=== PATIENT | female | born 1970 | race Caucasian/White ===

== ENCOUNTER 2022-04-25 18:20 | Emergency (ER) | payer MEDICAID, MEDICARE ==
[2022-04-25] MEDS ORDERED: Sodium Chloride 0.9% 10 ML Syringe FLUSH PRN (19:15)
[2022-04-25] MEDS ORDERED: Acetaminophen 500 MG Tab PO ONE (19:17)
[2022-04-25] MEDS ORDERED: Sodium Chloride 0.9% 1,000 ML IV ONE (19:17)
[2022-04-25 19:58] LABS: ESTIMATED GFR > 60 (>60)
[2022-04-25 20:33] LABS: CORONAVIRUS COVID-19 NAA POSITIVE (NEGATIVE)
== END 2022-04-25 21:19 | disposition home or self-care (01) ==
LOC: JP.ED 18:20
DX: U07.1 COVID-19 (principal); R00.0 Tachycardia, unspecified; R06.82 Tachypnea, not elsewhere classified; E11.9 Type 2 diabetes mellitus without complications; E66.9 Obesity, unspecified; Z68.41 Body mass index [BMI] 40.0-44.9, adult; Z86.73 Personal history of transient ischemic attack (TIA), and cerebral infarction without residual deficits; Z90.49 Acquired absence of other specified parts of digestive tract; Z90.710 Acquired absence of both cervix and uterus; Z79.899 Other long term (current) drug therapy; Z79.4 Long term (current) use of insulin; Z79.84 Long term (current) use of oral hypoglycemic drugs
CPT/HCPCS: 0241U; 36415; 71045; 71045-26; 80053; 81001; 83605; 85025; 86140; 87040; 87086; 96360; 99284; 99285-25; A9270-GY; J3490; J7030

== ENCOUNTER 2022-05-02 03:12 | Emergency (ER) | payer MEDICARE | END 2022-05-02 03:59 | disposition home or self-care (01) | LOC: JP.ED 03:12 | DX: U07.1 COVID-19 (principal); E11.9 Type 2 diabetes mellitus without complications; E66.9 Obesity, unspecified; Z68.41 Body mass index [BMI] 40.0-44.9, adult; F32.A Depression, unspecified; Z79.4 Long term (current) use of insulin | CPT/HCPCS: 99284 ==

== ENCOUNTER 2023-08-15 10:01 | Emergency (ER) | payer MEDICARE, MEDICAID | END 2023-08-15 15:00 | disposition left against medical advice (07) | LOC: JP.ED 10:01 | DX: Z53.21 Procedure and treatment not carried out due to patient leaving prior to being seen by health care provider (principal) ==